=== PATIENT | male | born 2000 | race Caucasian/White ===

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

== ENCOUNTER 2020-02-12 16:58 | Emergency (ER) | payer SELFPAY ==
[~2020-02-12] VITALS: Ht 175.3 cm; Wt 59.9 kg
[2020-02-12 17:04] VITALS: BP 126/72
--- NOTE | 2020-02-12 17:04 | NUR ---
Pt ambulated to bed 11.
--- NOTE | 2020-02-12 17:30 | NUR ---
CONCERNED ABOUT MOLE CAUSING PRURITUS---
[2020-02-12 17:44] VITALS: BP 126/72
--- NOTE | 2020-02-12 17:45 | NUR ---
Patient discharged with v/s stable. Written and verbal after care instructions given and explained. Patient verbalized understanding. Ambulatory with steady gait. All questions addressed prior to discharge. Advised to follow up with PMD.
== END 2020-02-12 17:41 | disposition home or self-care (01) ==
LOC: MED 16:58
DX: L91.8 Other hypertrophic disorders of the skin (principal)
CPT/HCPCS: 99281

== ENCOUNTER 2020-02-20 01:25 | Emergency (ER) | payer SELFPAY ==
[~2020-02-20] VITALS: Ht 175.3 cm; Wt 59.9 kg
[2020-02-20 01:28] VITALS: BP 124/69
--- NOTE | 2020-02-20 01:36 | NUR ---
PT TAKEN TO BED 11
--- NOTE | 2020-02-20 01:45 | NUR ---
Dr. Fletcher examining patient.
--- NOTE | 2020-02-20 01:57 | NUR ---
19 year old male coming in for c/o rt testicular pain. states swelling of the rt testicle started x 4 months. denies any injury or trauma on the site. states " one day, I just woke up and my testicle was swollen." pt reports 5/10 pain on rt testicle. denies any other s/sx. all other systems WNL. placed on a gown for US. pmhx: denies nka
[2020-02-20] MEDS ORDERED: IBUPROFEN 800 MG TAB PO ONE (02:00)
--- NOTE | 2020-02-20 02:10 | NUR ---
covering primary STEFFANIE Ahmadi for lunch. assumed pt care at this time.
--- NOTE | 2020-02-20 02:31 | NUR ---
US AT BEDSIDE
[2020-02-20 02:59] VITALS: BP 124/69
== END 2020-02-20 02:59 | disposition home or self-care (01) ==
LOC: MED 01:25
DX: N50.89 Other specified disorders of the male genital organs (principal); N50.811 Right testicular pain
CPT/HCPCS: 76870; 99284; Q0092